=== PATIENT | male | born 1965 | race Caucasian/White ===

== ENCOUNTER 2021-06-06 06:42 | Inpatient (IN) | payer OTHER ==
[~2021-06-06] VITALS: Ht 170.2 cm; Wt 103.0 kg
[2021-06-06] VITALS (14 sets, daily range): BP systolic 129–205; BP diastolic 61–80
[2021-06-06] MEDS ORDERED: MAG HYDROX/AL HYDROX/SIMETH 30 ML SUSP UDCUP PO ONE (07:00)
[2021-06-06] MEDS ORDERED: FAMOTIDINE 20 MG TABLET PO ONE (07:00)
[2021-06-06] MEDS ORDERED: ACETAMINOPHEN 500 MG TABLET PO ONE (07:00)
[2021-06-06 07:24] LABS: BASOPHILS % (AUTO) 0.9 % (0.0-2.0); EOSINOPHILS % (AUTO) 2.5 % (1.0-6.0); HEMATOCRIT 36.6 % (41-53); HEMOGLOBIN 12.8 g/dL (13.5-17.5); LYMPHOCYTES # (AUTO) 2.3 K/uL (1.0-4.8); LYMPHOCYTES % (AUTO) 20.2 % (22.0-44.0); MEAN CORPUSCULAR HEMOGLOBIN 30.1 pg (26.0-34.0); MEAN CORPUSCULAR VOLUME 86 fL (80-100); MONOCYTES # (AUTO) 0.9 K/uL (0.1-1.0); MONOCYTES % (AUTO) 7.8 % (2.0-9.0); NEUTROPHILS # (AUTO) 7.9 K/uL (1.8-7.7); NEUTROPHILS % (AUTO) 68.6 % (40.0-70.0); PLATELET COUNT (AUTO) 202 K/uL (150-450); RED BLOOD CELL COUNT(AUTO) 4.26 MIL/uL (4.50-5.90); RED CELL DISTRIBUTION WIDTH 13.6 % (11.5-14.5)
[2021-06-06 07:36] LABS: ANION GAP 11 mmol/L (8-16); CALCIUM, TOTAL 8.9 mg/dL (8.8-10.5); CARBON DIOXIDE 25 mmol/L (22-29); CHLORIDE 100 mmol/L (98-107); CREATININE 1.22 mg/dL (0.60-1.30); GLOMERULAR FILTR. RATE CALC > 60 mL/min (>60); GLUCOSE,POINT OF CARE 277 MG/DL (70-110); GLUCOSE,RANDOM 313 mg/dL (70-110); POTASSIUM 4.3 mmol/L (3.5-5.1); SODIUM SERUM 136 mmol/L (136-145); UREA NITROGEN, BLOOD 22 mg/dL (7-18)
[2021-06-06 07:47] LABS: ALANINE AMINOTRANSFERASE 17 U/L (12-78); ALBUMIN 3.1 g/dL (3.4-5.0); ALKALINE PHOSPHATASE 145 U/L (46-116); ASPARTATE AMINOTRANSFERASE 9 U/L (15-37); BILIRUBIN,TOTAL 0.2 mg/dL (0.1-1.0); CREATINE KINASE, TOTAL ONLY 63 U/L (39-308); TOTAL PROTEIN, SERUM 7.4 g/dL (6.4-8.2)
[2021-06-06 07:51] LABS: B-TYPE NATRIURETIC PEPTIDE 83 pg/mL (0-100)
[2021-06-06] MEDS ORDERED: ASPIRIN 325 MG TABLET PO ONE (08:00)
[2021-06-06] MEDS ORDERED: NITROGLYCERIN 0.4 MG SUBLINGUAL TABLET #25 SL ONE (08:00)
[2021-06-06 08:21] LABS: COVID AG,FIA SOURCE NASOPHARYNGEAL
[2021-06-06] MEDS ORDERED: ACETAMINOPHEN 325 MG TABLET PO PRN ×2 (09:15→20:15)
[2021-06-06] MEDS ORDERED: 0.9% SODIUM CHLORIDE 10 ML SYRINGE IVP PRN (09:15)
[2021-06-06] MEDS ORDERED: ONDANSETRON HCL 4 MG/2 ML VIAL IVP PRN ×2 (09:15→20:15)
[2021-06-06] MEDS ORDERED: HEPARIN SODIUM 25000 UNITS/D5W 250 ML IV PRN (09:45)
[2021-06-06] MEDS: ATORVASTATIN CALCIUM 40 MG TABLET PO SCH (10:53)
[2021-06-06 10:55] LABS: PROTHROMBIN TIME 10.4 SEC (9.4-11.6)
[2021-06-06] MEDS ORDERED: IOHEXOL 300 MG/ML 50 ML VIAL ONE ×2 (12:03→13:20)
[2021-06-06] MEDS ORDERED: IOHEXOL 300 MG/ML 100 ML VIAL ONE (12:03)
[2021-06-06] MEDS ORDERED: IOHEXOL 300 MG/ML 150 ML VIAL ONE (12:03)
[2021-06-06] MEDS ORDERED: HEPARIN SODIUM 1000 UNITS/NS 1,000 ML ONE (12:03)
[2021-06-06] MEDS ORDERED: LIDOCAINE/PF 1% 30 ML VIAL ONE (12:03)
[2021-06-06] MEDS ORDERED: SODIUM BICARBONATE 50 MEQ/50 ML VIAL ONE (12:03)
[2021-06-06] MEDS ORDERED: VERAPAMIL HCL 2.5 MG/ML 2 ML VIAL ONE (12:04)
[2021-06-06] MEDS ORDERED: NITROGLYCERIN 50 MG/D5% WATER 250 ML ONE (12:04)
[2021-06-06] MEDS ORDERED: MIDAZOLAM HCL 2 MG/2 ML VIAL ONE (12:32)
[2021-06-06] MEDS ORDERED: FentaNYL CITRATE PF 100 MCG/2 ML VIAL ONE ×2 (12:32→13:34)
[2021-06-06] MEDS ORDERED: FentaNYL CITRATE PF 100 MCG/2 ML VIAL IVP ONE ×3 (13:00→13:45)
[2021-06-06] MEDS ORDERED: HEPARIN SODIUM 1000 UNITS/NS 1,000 ML IARTER ONE (13:00)
[2021-06-06] MEDS ORDERED: HEPARIN SODIUM,PORCINE 1,000 UNITS/ML 10 ML VIAL IARTER ONE (13:00)
[2021-06-06] MEDS ORDERED: LIDOCAINE 1% 30 ML/SOD BICARB 8.4% 4 ML SQ ONE (13:00)
[2021-06-06] MEDS ORDERED: IOHEXOL 300 MG/ML 150 ML VIAL IARTER ONE (13:00)
[2021-06-06] MEDS ORDERED: VERAPAMIL HCL 2.5 MG/ML 2 ML VIAL IARTER ONE (13:00)
[2021-06-06] MEDS ORDERED: MIDAZOLAM HCL 2 MG/2 ML VIAL IVP ONE (13:00)
[2021-06-06] MEDS ORDERED: NITROGLYCERIN/D5W 50 MG/250 ML IV BOTTLE IARTER ONE (13:00)
[2021-06-06] MEDS ORDERED: SODIUM CHLORIDE 0.9% 500 ML IV ONE (13:00)
[2021-06-06] MEDS ORDERED: HEPARIN SODIUM,PORCINE 5,000 UNITS/ML VIAL IVP ONE (13:15)
[2021-06-06] MEDS ORDERED: IOHEXOL 300 MG/ML 50 ML VIAL IARTER ONE (13:15)
[2021-06-06] MEDS ORDERED: NITROGLYCERIN 400 MCG/SUBLINGUAL SPRAY 4.9 GM BOTTLE SL ONE ×2 (13:17→13:45)
[2021-06-06] MEDS ORDERED: MORPHINE SULFATE 2 MG/ML SYRINGE IVP ONE (13:30)
[2021-06-06] MEDS ORDERED: TICAGRELOR 90 MG TABLET ONE (13:40)
[2021-06-06] MEDS ORDERED: PRASUGREL HCL 10 MG TABLET PO ONE ×2 (13:45→14:00)
[2021-06-06] MEDS ORDERED: MORPHINE SULFATE 10 MG/ML VIAL IVP PRN ×2 (16:15→16:30)
[2021-06-06] MEDS ORDERED: PANTOPRAZOLE SODIUM 40 MG DR TABLET PO SCH (16:15)
[2021-06-06] MEDS ORDERED: HYDROCODONE/ACETAMINOPHEN 5-325 MG TABLET PO PRN ×2 (16:30→20:15)
[2021-06-06] MEDS ORDERED: PANTOPRAZOLE SODIUM 40 MG DR TABLET PO ONE (16:45)
[2021-06-06] MEDS ORDERED: NITROGLYCERIN 0.4 MG SUBLINGUAL TABLET #25 SL PRN (18:00)
[2021-06-06] MEDS ORDERED: MORPHINE SULFATE 2 MG/ML SYRINGE IVP PRN (20:15)
[2021-06-06] MEDS ORDERED: IPRATROPIUM BROMIDE 0.5 MG/2.5 ML NEB SOLUTION NEB PRN (20:15)
[2021-06-06] MEDS ORDERED: MAGNESIUM HYDROXIDE SUSPENSION 30 ML UDCUP PO PRN (20:15)
[2021-06-06] MEDS ORDERED: DEXTROSE 50%-WATER 25 GM/50 ML SYRINGE IVP PRN (20:15)
[2021-06-06] MEDS ORDERED: ZOLPIDEM TARTRATE 5 MG TABLET PO PRN (20:15)
[2021-06-06] MEDS ORDERED: ALBUTEROL SULFATE 2.5 MG/0.5 ML NEB SOLUTION NEB PRN (20:15)
[2021-06-06] MEDS ORDERED: BISACODYL 10 MG RECTAL RECTAL SUPPOSITORY PR PRN (20:15)
[2021-06-06] MEDS: METOPROLOL TARTRATE 25 MG TABLET PO SCH (21:00)
[2021-06-06] MEDS: DOCUSATE SODIUM 100 MG CAPSULE PO SCH (21:13)
[2021-06-06] MEDS: INSULIN LISPRO 100 UNITS/ML SQ PRN (21:16)
[2021-06-07 04:18] VITALS: BP 140/77
[2021-06-07 05:41] LABS: GLUCOMETER DEV NAME(LOC) 5N.1C; GLUCOSE,POINT OF CARE 208 MG/DL (70-110)
[2021-06-07 06:25] LABS: BASOPHILS % (AUTO) 0.6 % (0.0-2.0); EOSINOPHILS % (AUTO) 1.6 % (1.0-6.0); HEMATOCRIT 38.9 % (41-53); HEMOGLOBIN 13.3 g/dL (13.5-17.5); LYMPHOCYTES # (AUTO) 2.4 K/uL (1.0-4.8); LYMPHOCYTES % (AUTO) 19.6 % (22.0-44.0); MEAN CORPUSCULAR HEMOGLOBIN 29.5 pg (26.0-34.0); MEAN CORPUSCULAR HGB CONC 34.2 G/dL (31.0-37.0); MEAN CORPUSCULAR VOLUME 86 fL (80-100); MONOCYTES # (AUTO) 1.1 K/uL (0.1-1.0); MONOCYTES % (AUTO) 9.4 % (2.0-9.0); NEUTROPHILS # (AUTO) 8.4 K/uL (1.8-7.7); NEUTROPHILS % (AUTO) 68.8 % (40.0-70.0); PLATELET COUNT (AUTO) 210 K/uL (150-450); RED BLOOD CELL COUNT(AUTO) 4.52 MIL/uL (4.50-5.90); RED CELL DISTRIBUTION WIDTH 13.9 % (11.5-14.5)
[2021-06-07 06:29] LABS: ALANINE AMINOTRANSFERASE 20 U/L (12-78); ALBUMIN 3.1 g/dL (3.4-5.0); ALKALINE PHOSPHATASE 107 U/L (46-116); ANION GAP 9 mmol/L (8-16); ASPARTATE AMINOTRANSFERASE 40 U/L (15-37); BILIRUBIN,TOTAL 0.6 mg/dL (0.1-1.0); CALCIUM, TOTAL 9.1 mg/dL (8.8-10.5); CARBON DIOXIDE 28 mmol/L (22-29); CHLORIDE 102 mmol/L (98-107); CHOL/HDL RATIO 5.1 (4.2-7.3); CHOLESTEROL 152 mg/dL (131-200); CREATININE 0.84 mg/dL (0.60-1.30); GLOMERULAR FILTR. RATE CALC > 60 mL/min (>60); GLUCOSE,RANDOM 180 mg/dL (70-110); HDL CHOLESTEROL 30 mg/dL (40-60); LDL CHOL (CALC.) 77 mg/dL (0-130); SODIUM SERUM 139 mmol/L (136-145); TOTAL PROTEIN, SERUM 7.2 g/dL (6.4-8.2); TRIGLYCERIDES 227 mg/dL (15-150); UREA NITROGEN, BLOOD 13 mg/dL (7-18)
[2021-06-07 08:00] VITALS: BP 138/80
[2021-06-07 08:08] LABS: B-TYPE NATRIURETIC PEPTIDE 111 pg/mL (0-100)
[2021-06-07 08:21] LABS: GLUCOMETER DEV NAME(LOC) 5N.1C; GLUCOSE,POINT OF CARE 163 MG/DL (70-110)
[2021-06-07] MEDS: PANTOPRAZOLE SODIUM 40 MG DR TABLET PO SCH (08:38)
[2021-06-07] MEDS: ASPIRIN 81 MG DR TABLET PO SCH (08:38)
[2021-06-07] MEDS: ATORVASTATIN CALCIUM 40 MG TABLET PO SCH (08:38)
[2021-06-07] MEDS: DOCUSATE SODIUM 100 MG CAPSULE PO SCH ×2 (08:38→20:39)
[2021-06-07] MEDS: PRASUGREL HCL 10 MG TABLET PO SCH (08:39)
[2021-06-07] MEDS: METOPROLOL TARTRATE 25 MG TABLET PO SCH ×2 (08:40→20:31)
[2021-06-07] MEDS ORDERED: PANTOPRAZOLE SODIUM 40 MG/VIAL IVP SCH (09:00)
[2021-06-07 11:30] VITALS: BP 125/60
[2021-06-07] MEDS: INSULIN LISPRO 100 UNITS/ML SQ PRN ×3 (11:55→20:32)
[2021-06-07 15:06] VITALS: BP 132/70
[2021-06-07 17:51] LABS: GLUCOMETER DEV NAME(LOC) 5S.2B; GLUCOSE,POINT OF CARE 219 MG/DL (70-110)
[2021-06-07 18:07] LABS: GLUCOMETER DEV NAME(LOC) 5N.1C; GLUCOSE,POINT OF CARE 168 MG/DL (70-110)
[2021-06-07 20:05] VITALS: BP 153/79
[2021-06-08] VITALS (19 sets, daily range): BP systolic 111–176; BP diastolic 54–87
[2021-06-08 07:06] LABS: GLUCOMETER DEV NAME(LOC) 5S.2B; GLUCOSE,POINT OF CARE 193 MG/DL (70-110)
[2021-06-08 07:06] LABS: GLUCOMETER DEV NAME(LOC) 5S.2B; GLUCOSE,POINT OF CARE 231 MG/DL (70-110)
[2021-06-08] MEDS ORDERED: IOHEXOL 300 MG/ML 50 ML VIAL ONE ×2 (08:28→09:41)
[2021-06-08] MEDS ORDERED: IOHEXOL 300 MG/ML 150 ML VIAL ONE (08:29)
[2021-06-08] MEDS ORDERED: HEPARIN SODIUM 1000 UNITS/NS 1,000 ML ONE (08:29)
[2021-06-08] MEDS ORDERED: LIDOCAINE/PF 1% 30 ML VIAL ONE (08:29)
[2021-06-08] MEDS ORDERED: IOHEXOL 300 MG/ML 100 ML VIAL ONE (08:29)
[2021-06-08] MEDS ORDERED: SODIUM BICARBONATE 50 MEQ/50 ML VIAL ONE (08:29)
[2021-06-08] MEDS ORDERED: FentaNYL CITRATE PF 100 MCG/2 ML VIAL ONE (08:38)
[2021-06-08] MEDS ORDERED: VERAPAMIL HCL 2.5 MG/ML 2 ML VIAL ONE (08:38)
[2021-06-08] MEDS ORDERED: NITROGLYCERIN 50 MG/D5% WATER 250 ML ONE (08:38)
[2021-06-08] MEDS ORDERED: MIDAZOLAM HCL 2 MG/2 ML VIAL ONE (08:39)
[2021-06-08] MEDS ORDERED: MIDAZOLAM HCL 2 MG/2 ML VIAL IVP ONE ×2 (09:15)
[2021-06-08] MEDS ORDERED: FentaNYL CITRATE PF 100 MCG/2 ML VIAL IVP ONE ×2 (09:15)
[2021-06-08] MEDS ORDERED: IOHEXOL 300 MG/ML 150 ML VIAL IARTER ONE (09:15)
[2021-06-08] MEDS ORDERED: VERAPAMIL HCL 2.5 MG/ML 2 ML VIAL IARTER ONE (09:15)
[2021-06-08] MEDS ORDERED: NITROGLYCERIN/D5W 50 MG/250 ML IV BOTTLE IARTER ONE (09:15)
[2021-06-08] MEDS ORDERED: HEPARIN SODIUM 1000 UNITS/NS 1,000 ML IARTER ONE (09:15)
[2021-06-08] MEDS ORDERED: HEPARIN SODIUM,PORCINE 1,000 UNITS/ML 10 ML VIAL IARTER ONE (09:15)
[2021-06-08] MEDS ORDERED: LIDOCAINE 1% 30 ML/SOD BICARB 8.4% 4 ML SQ ONE (09:15)
[2021-06-08] MEDS ORDERED: IOHEXOL 300 MG/ML 50 ML VIAL IARTER ONE (09:15)
[2021-06-08] MEDS ORDERED: HEPARIN SODIUM,PORCINE 5,000 UNITS/ML VIAL IVP ONE ×2 (09:15→09:45)
[2021-06-08] MEDS ORDERED: SODIUM CHLORIDE 0.9% 500 ML IV ONE (09:15)
[2021-06-08] MEDS ORDERED: ASPIRIN 81 MG CHEWABLE TABLET ONE (09:47)
[2021-06-08] MEDS: ASPIRIN 81 MG DR TABLET PO SCH (09:56)
[2021-06-08] MEDS: PRASUGREL HCL 10 MG TABLET PO SCH (09:56)
[2021-06-08] MEDS ORDERED: SODIUM CHLORIDE 0.9% 1,000 ML IV ONE (10:15)
[2021-06-08] MEDS: METOPROLOL TARTRATE 25 MG TABLET PO SCH ×2 (11:15→20:29)
[2021-06-08] MEDS: PANTOPRAZOLE SODIUM 40 MG DR TABLET PO SCH (11:15)
[2021-06-08] MEDS: DOCUSATE SODIUM 100 MG CAPSULE PO SCH ×2 (11:15→20:29)
[2021-06-08] MEDS: ATORVASTATIN CALCIUM 40 MG TABLET PO SCH (11:15)
[2021-06-08] MEDS: INSULIN LISPRO 100 UNITS/ML SQ PRN ×3 (11:44→20:37)
[2021-06-08 11:52] LABS: GLUCOMETER DEV NAME(LOC) 5N.1C; GLUCOSE,POINT OF CARE 182 MG/DL (70-110)
[2021-06-08 18:06] LABS: GLUCOMETER DEV NAME(LOC) 5N.1C; GLUCOSE,POINT OF CARE 256 MG/DL (70-110)
[2021-06-09 01:41] LABS: GLUCOMETER DEV NAME(LOC) 5S.2B; GLUCOSE,POINT OF CARE 168 MG/DL (70-110)
[2021-06-09 04:00] VITALS: BP 126/62
[2021-06-09] MEDS: INSULIN LISPRO 100 UNITS/ML SQ PRN ×3 (06:10→18:17)
[2021-06-09 06:56] LABS: GLUCOMETER DEV NAME(LOC) 5N.1C; GLUCOSE,POINT OF CARE 179 MG/DL (70-110)
[2021-06-09 07:40] VITALS: BP 125/63
[2021-06-09] MEDS: PRASUGREL HCL 10 MG TABLET PO SCH (08:51)
[2021-06-09] MEDS: PANTOPRAZOLE SODIUM 40 MG DR TABLET PO SCH (08:52)
[2021-06-09] MEDS: ATORVASTATIN CALCIUM 40 MG TABLET PO SCH (08:52)
[2021-06-09] MEDS: ASPIRIN 81 MG DR TABLET PO SCH (08:52)
[2021-06-09] MEDS: DOCUSATE SODIUM 100 MG CAPSULE PO SCH (08:52)
[2021-06-09] MEDS: METOPROLOL TARTRATE 25 MG TABLET PO SCH (08:52)
[2021-06-09 11:05] VITALS: BP 110/75
[2021-06-09 15:49] LABS: APPEARANCE,URINE CLEAR (CLEAR); BILIRUBIN,URINE NEGATIVE (NEGATIVE); GLUCOSE, URINE (UA) >=1000 mg/dL (NEGATIVE); KETONES,URINE NEGATIVE (NEGATIVE); LEUKOCYTE ESTERASE ,URINE NEGATIVE (NEGATIVE); NITRATE,URINE NEGATIVE (NEGATIVE); OCCULT BLOOD,URINE NEGATIVE (NEGATIVE); PH,URINE 5.5 (5.0-8.0); PROTEIN,URINE 30-70 mg/dL (NEGATIVE); SPECIFIC GRAVITIY, URINE 1.017 (1.003-1.030); UROBILINOGEN,URINE <=1.0 mg/dL (<=1.0)
[2021-06-09 15:54] VITALS: BP 118/68
[2021-06-09 16:24] LABS: BACTERIA,URINE None Seen /HPF (None Seen); RBC,URINE None Seen /HPF (0-2); WBC,URINE None Seen /HPF (0-5)
[2021-06-09 16:56] LABS: GLUCOMETER DEV NAME(LOC) 5S.2B; GLUCOSE,POINT OF CARE 241 MG/DL (70-110)
[2021-06-09] MEDS ORDERED: ASPI-1450 PO (19:06)
[2021-06-09] MEDS ORDERED: ATOR40TA28 PO (19:16)
[2021-06-09] MEDS ORDERED: PRAS10TA6 PO (19:17)
[2021-06-09] MEDS ORDERED: METO25 PO (19:17)
[2021-06-09 20:21] LABS: GLUCOMETER DEV NAME(LOC) 5N.1C; GLUCOSE,POINT OF CARE 196 MG/DL (70-110)
== END 2021-06-09 19:45 | disposition home or self-care (01) | DRG 247 ==
LOC: EMS 06:42 → 5S 10:37
PROVIDERS: ADMIT Hospitalist; ATTEND Hospitalist
PROC: 4A023N7 Measurement of Cardiac Sampling and Pressure, Left Heart, Percutaneous Approach (ICD-10-PCS; principal; 2021-06-06)
PROC: 027034Z Dilation of Coronary Artery, One Artery with Drug-eluting Intraluminal Device, Percutaneous Approach (ICD-10-PCS; 2021-06-06)
PROC: B2111ZZ Fluoroscopy of Multiple Coronary Arteries using Low Osmolar Contrast (ICD-10-PCS; 2021-06-06)
PROC: 027035Z Dilation of Coronary Artery, One Artery with Two Drug-eluting Intraluminal Devices, Percutaneous Approach (ICD-10-PCS; 2021-06-08)
PROC: 4A023N7 Measurement of Cardiac Sampling and Pressure, Left Heart, Percutaneous Approach (ICD-10-PCS; 2021-06-08)
PROC: B2111ZZ Fluoroscopy of Multiple Coronary Arteries using Low Osmolar Contrast (ICD-10-PCS; 2021-06-08)
DX: I21.4 Non-ST elevation (NSTEMI) myocardial infarction (principal); E44.0 Moderate protein-calorie malnutrition; Z20.822 Contact with and (suspected) exposure to COVID-19; E11.9 Type 2 diabetes mellitus without complications; I44.0 Atrioventricular block, first degree; I10 Essential (primary) hypertension; Z82.49 Family history of ischemic heart disease and other diseases of the circulatory system; Z87.891 Personal history of nicotine dependence; Z68.35 Body mass index [BMI] 35.0-35.9, adult
CPT/HCPCS: 71045; 80053; 80061; 81001; 82550; 82962; 83036; 83880; 84145; 84484; 85025; 85610; 85730; 87081; 92920; 92928; 93005; 93306; 99291; J1644; J2250; J2270; J3010; J3490; J7030; Q9967; 36415-L1; 36415-TC; Z7610

== ENCOUNTER 2021-12-01 11:58 | Emergency (ER) | payer SELFPAY ==
[~2021-12-01] VITALS: Ht 167.6 cm; Wt 104.5 kg
[~2021-12-01 11:58] MED LIST: ASPI-1450 PO; ATOR40TA28 PO; NEBI5TAB2 PO; PRAS10TA6 PO
[2021-12-01] MEDS ORDERED: METF-1211 PO (12:05)
[2021-12-01 12:31] LABS: BASOPHILS % (AUTO) 0.8 % (0.0-2.0); LYMPHOCYTES # (AUTO) 2.6 K/uL (1.0-4.8); LYMPHOCYTES % (AUTO) 23.6 % (22.0-44.0); MEAN CORPUSCULAR HEMOGLOBIN 29.1 pg (26.0-34.0); MEAN CORPUSCULAR HGB CONC 33.3 G/dL (31.0-37.0); MEAN CORPUSCULAR VOLUME 87 fL (80-100); MONOCYTES # (AUTO) 0.9 K/uL (0.1-1.0); MONOCYTES % (AUTO) 7.7 % (2.0-9.0); NEUTROPHILS # (AUTO) 7.4 K/uL (1.8-7.7); NEUTROPHILS % (AUTO) 65.9 % (40.0-70.0); PLATELET COUNT (AUTO) 212 K/uL (150-450); RED BLOOD CELL COUNT(AUTO) 4.81 MIL/uL (4.50-5.90); RED CELL DISTRIBUTION WIDTH 13.4 % (11.5-14.5)
[2021-12-01 12:57] LABS: CALCIUM, TOTAL 9.9 mg/dL (8.8-10.5); CREATININE 1.26 mg/dL (0.60-1.30); POTASSIUM 4.3 mmol/L (3.5-5.1)
[2021-12-01] MEDS ORDERED: PB/HYOSCY/ATR/SCOP/LIDO/MAALOX 55 ML BOTTLE PO ONE (13:00)
[2021-12-01 13:03] LABS: ALBUMIN 3.6 g/dL (3.4-5.0); BILIRUBIN,TOTAL 0.7 mg/dL (0.1-1.0); TOTAL PROTEIN, SERUM 8.2 g/dL (6.4-8.2)
[2021-12-01 13:26] VITALS: BP 143/77
[2021-12-01] MEDS ORDERED: FAMO20 PO (13:43)
== END 2021-12-01 13:55 | disposition home or self-care (01) ==
LOC: EMS 11:58
DX: K21.9 Gastro-esophageal reflux disease without esophagitis (principal); R07.89 Other chest pain; I10 Essential (primary) hypertension; E11.9 Type 2 diabetes mellitus without complications; Z79.84 Long term (current) use of oral hypoglycemic drugs; Z79.899 Other long term (current) drug therapy
CPT/HCPCS: 71045; 80053; 83880; 84484; 85025; 85610; 85730; 93005; 99285